=== PATIENT | female | born 1990 | race Caucasian/White ===

== ENCOUNTER 2016-11-29 01:10 | Emergency (ER) | payer OTHER ==
[2016-11-29] MEDS ORDERED: HYDROcodone /APAP 5/325 1 EACH TABLET PO ONE (01:21)
[2016-11-29] MEDS ORDERED: CEPHALEXIN 250 MG CAPSULE PO ONE (01:21)
[2016-11-29 01:24] VITALS: BP 126/75
--- NOTE | 2016-11-29 01:25 | ED Physician Documentation ---
General Adult - HISTORIAN Historian: patient - HPI Stated Complaint: dental pain Chief Complaint: General Adult Onset: days ago (1) Timing: still present Severity: moderate Further Comments: yes (Pt is a 26 yo female with dental pain x 1 day in both upper and lower R jaw. Pt has been taking Tylenol. No fever.) - ROS CONST: no problems EYES/ENT: other (dental pain) CVS/RESP: none GI/: none MS/SKIN/LYMPH: none - PAST HX Past History: other (depression) Allergies/Adverse Reactions: Allergies Allergy/AdvReac Type Severity Reaction Status Date / Time amoxicillin trihydrate Allergy Verified 11/29/16 01:24 [From Amoxil] Penicillins Allergy Verified 11/29/16 01:24 Home Medications: Ambulatory Orders Medication Instructions Recorded Ondansetron HCl Rapdis [Zofran Odt] 4 mg PO Q8 PRN #5 tab 05/05/12 Pnv95/Ferrous Fumarate/FA 1 each PO DAILY 05/05/12 [ Tablet] - SOCIAL HX Smoking History: cigarettes - FAMILY HX Family History: No - VITAL SIGNS Vital Signs: Vital Signs Temp Pulse Resp BP Pulse Ox 120/73 07/10/12 12:12 - REVIEWED ASSESSMENTS Nursing Assessment Reviewed: Yes Vitals Reviewed: Yes Progress - Progress Progress: Rx [place] (5/325) 1-2 po q 4-6 h prn # 15, plus 2 tabs in ER. Rx Keflex 500 mg. Take one every 8 hrs for 10 days. 1st dose in ER. ED Results Lab/Radiology - Orders Orders: ED Orders Category Date Time Status Cephalexin [Keflex] Med 11/29/16 01:21 Once 500 mg PO NOW ONE HYDROcodone /APAP 5/325 [[place] 5/325] Med 11/29/16 01:21 Once 2 each PO NOW ONE General Adult Physical Exam - PHYSICAL EXAM GENERAL APPEARANCE: moderate distress EENT: pharynx normal, other (dental caries, tenderness R upper molar; tenderness R lower molar also) NECK: normal inspection, supple RESPIRATORY: no resp distress CVS: reg rate & rhythm BACK: normal inspection SKIN: warm/dry, normal color EXTREMITIES: non-tender, normal range of motion, no edema NEURO: oriented X3, motor nml, sensation nml Discharge Clincal Impression: Pain, dental Condition: Good Disposition: 01 HOME, SELF-CARE Decision to Admit: NO Decision Time: 01:28
== END 2016-11-29 01:40 | disposition home or self-care (01) ==
LOC: ED 01:10
DX: K08.89 Other specified disorders of teeth and supporting structures (principal)
CPT/HCPCS: 99283

== ENCOUNTER 2017-03-14 01:20 | Emergency (ER) | payer OTHER ==
--- NOTE | 2017-03-14 01:40 | ED Physician Documentation ---
Eye Trauma - HISTORIAN Historian: patient - HPI Stated Complaint: splashed hot wax in rt eye Chief Complaint: Eye Trauma Onset: hours (1) Associated symptoms: pain, redness Location: right eye Severity: mild Apparent Injury: no Context: foreign body (spilled scentsy wax in her eye ) Where: home Other Injuries: other (none ) Further Comments: yes (she states she can see although her eye is watering.) - ROS CONST: no problems - PAST HX Past History: none Allergies/Adverse Reactions: Allergies Allergy/AdvReac Type Severity Reaction Status Date / Time amoxicillin trihydrate Allergy Severe Rash Verified 03/14/17 01:28 [From Amoxil] Penicillins Allergy Severe Rash Verified 03/14/17 01:28 Home Medications: Ambulatory Orders Medication Instructions Recorded NK [NK] 03/14/17 - SOCIAL HX Smoking History: non-smoker Alcohol Use: none Drug Use: none - FAMILY HX Family History: none - VITAL SIGNS Vital Signs: Vital Signs Temp Pulse Resp BP Pulse Ox 108/64 02/15/17 03:29 - REVIEWED ASSESSMENTS Nursing Assessment Reviewed: Yes Vitals Reviewed: Yes Eye Trauma Physical Exam - Physical Exam General Appearance: no acute distress Examined with Slit Lamp: No Visual Acuity: see nursing assessment Eyelids: nml inspection, erythema (R). No: edema (R) Conjunctiva and Sclera: nml inspection. No: foreign material (R) Corneas: nml inspection, fluorescein dye uptake (R). No: foreign body (R) EOM's: intact Pupils: PERRL Head/ENT: nml inspection Skin: nml color, warm, skin intact Neck/Back: nml inspection Respiratory: no resp distress Abdomen: non-tender Neuro/Psych: oriented x3, neuro intact, mood/affect nml Discharge Clincal Impression: Eye injury Qualifiers: Encounter type: initial encounter Laterality: right Qualified Code(s): S05.91XA - Unspecified injury of right eye and orbit, initial encounter Referrals: Primary Doctor,No [Primary Care Provider] - 2 Days Comments: Keep eye covered when needed Cool pack to eye when needed See eye dr in am COLBY return to ER for any concerning symptoms Condition: Stable Disposition: 01 HOME, SELF-CARE Decision to Admit: NO Date of Decison to Admit: 03/14/17 Decision Time: 01:56
[2017-03-14 02:00] VITALS: BP 116/70
[2017-03-14] MEDS: PROPARACAINE HCL 0.5% OPTH OP ONE (02:15)
== END 2017-03-14 01:50 | disposition home or self-care (01) ==
LOC: ED 01:20
DX: S05.91XA Unspecified injury of right eye and orbit, initial encounter (principal); X58.XXXA Exposure to other specified factors, initial encounter
CPT/HCPCS: 99282

== ENCOUNTER 2017-07-25 20:46 | Emergency (ER) | payer OTHER ==
--- NOTE | 2017-07-25 21:33 | ED Physician Documentation ---
Skin Rash - HISTORIAN Historian: patient - HPI Stated Complaint: Rash to Leg Chief Complaint: Skin Rash Onset: days ago (7) Timing: still present Location: RLE (posterior thigh) Identified Cause?: No Where: home Context: Medication Exposure: none Context: Food Exposure: none Further Comments: yes (26 year old female presents with rash to right posterior thigh. C/O itching; has been present for 7 days. No OTC medication used [employer].) - ROS CONST: none CVS/RESP: none EYES/ENT: none GI/: none MS/SKIN/LYMPH: none NEURO/PSYCH: none - PAST HX Past History: none Other History: none Surgeries/Procedures: Yes ( x 2; BLT) Allergies/Adverse Reactions: Allergies Allergy/AdvReac Type Severity Reaction Status Date / Time amoxicillin trihydrate Allergy Severe Rash Verified 07/25/17 20:48 [From Amoxil] Penicillins Allergy Severe Rash Verified 07/25/17 20:48 Home Medications: Ambulatory Orders Medication Instructions Recorded NK [NK] 03/14/17 - SOCIAL HX Smoking History: cigarettes - FAMILY HX Family History: denies: none - VITAL SIGNS Vital Signs: Vital Signs Temp Pulse Resp BP Pulse Ox 98.1 F 72 18 110/58 99 07/25/17 20:50 07/25/17 21:36 07/25/17 21:36 07/25/17 21:36 07/25/17 21:36 - REVIEWED ASSESSMENTS Nursing Assessment Reviewed: Yes Vitals Reviewed: Yes Skin Rash Physical Exam - EXAM General Appearance: no acute distress, alert Skin: warm,dry, erythema Location: extremities (right posterior thigh) Character: maculopapular Extremities: non-tender, nml ROM, no edema EENT: eyes nml inspection, lips nml, gums nml, pharynx nml Respiratory: no resp distress, chest non-tender, breath sounds normal CVS: reg. 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 Over the counter hydrocortisone cream as needed. See your primary doctor or return to the ER if you have increase shortness of breath or difficulty breathing. Condition: Stable Disposition: 01 HOME, SELF-CARE Decision to Admit: NO Decision Time: 21:33
[2017-07-25 21:37] VITALS: BP 110/58
== END 2017-07-25 21:36 | disposition home or self-care (01) ==
LOC: ED 20:46
DX: R21 Rash and other nonspecific skin eruption (principal)

== ENCOUNTER 2017-08-24 13:33 | Outpatient (CLI) | payer OTHER ==
--- NOTE | 2017-09-01 09:03 | OP Clinic Progress Note ---
REASON FOR VISIT: This is a 26-year-old female who is seen in consultation for a forehead lesion removal. She has had a progressively enlarging mass on the left forehead for 6 to 10 years. No trauma. There has been no drainage. It is not painful, just slowly growing. There is about a 1-inch mass that is fairly soft and nontender with no evident pores or drainage. It does not appear to be really skin attached. It is movable. Examination otherwise is unremarkable. PLAN: I went over risks, problems, complications of excision of this and that more than likely it is a lipoma or a dermoid. The possibility again of recurrence, scar, wound breakdown, and other issues were reviewed with the patient. She understands and accepts these issues. Plans are for sedation with local anesthesia and excision and primary repair. FRANSISCO
== END 2017-08-24 13:35 ==
LOC: ENT 13:33
PROVIDERS: ATTEND Otolaryngology
DX: L98.9 Disorder of the skin and subcutaneous tissue, unspecified (principal)
CPT/HCPCS: 99213

== ENCOUNTER 2017-09-21 07:59 | Day surgery (SDC) | payer OTHER ==
[2017-09-21] MEDS ORDERED: NEOSTIGMINE METHYLSULFATE 1 MG/ML VIAL ONE (09:00)
[2017-09-21] MEDS ORDERED: PROPOFOL 200 MG/20 ML VIAL IV ONE (09:00)
[2017-09-21] MEDS ORDERED: fentaNYL CITRATE/PF 100 MCG/ 2ML AMP ONE (09:00)
[2017-09-21] MEDS ORDERED: ROCURONIUM BROMIDE 10 MG/ML 5ML VIAL ONE (09:00)
[2017-09-21] MEDS ORDERED: MIDAZOLAM HCL 2 MG/2 ML VIAL ONE (09:00)
[2017-09-21] MEDS ORDERED: GLYCOPYRROLATE 0.2 MG/1 ML 1 ML ONE (09:00)
[2017-09-21] MEDS ORDERED: DEXAMETHASONE SOD PHOS 4 MG/ML VIAL ONE ×2 (09:00→09:28)
[2017-09-21] MEDS ORDERED: ACETAMINOPHEN 1,000 MG/100 ML INJ IV ONE (09:00)
[2017-09-21] MEDS ORDERED: LACTATED RINGERS 1,000 ML IV.SOLN IV ONE (09:00)
[2017-09-21] MEDS ORDERED: 0.9 % SODIUM CHLORIDE 0 ML IV ONE (09:27)
[2017-09-21] MEDS ORDERED: LIDOCAINE 1%/EPINEPHRINE 20ML VIAL IJ ONE ×2 (09:27→12:31)
--- NOTE | 2017-09-22 10:40 | History and Physical Report ---
CHIEF COMPLAINT/HISTORY AND PHYSICAL: This 26-year-old female is admitted with a lesion on her forehead. It has been there for years and has gotten progressively larger and occasionally it aches. There has been no drainage. There has been no known trauma. PAST MEDICAL HISTORY/REVIEW OF SYSTEMS: ALLERGIES TO MEDICATIONS: 1. Amoxicillin. 2. Penicillin. MEDICATIONS GENERALLY TAKEN: None noted. PHYSICAL EXAMINATION: GENERAL: This is an alert female. HEENT: There is about a 2 cm lesion on the forehead on the left side in the mid-portion of it. The remainder of the head and neck examination is unremarkable. LUNGS: Clear to auscultation and percussion. HEART: Regular rhythm without murmurs, clicks, rubs, heaves, or thrills. ABDOMEN: Mesomorphic and benign. NEUROLOGIC: Grossly intact. EXTREMITIES: Normal range of movement. No edema, clubbing, cyanosis, or deformity. RECTAL/PELVIC: Deferred. IMPRESSION: Mass on forehead, probable lipoma. It is fairly soft. PLAN: Excision of this is the patients choice. I have discussed this several times with her. She understands there will be a scar and it can be unsightly. It can be recurrent. There can be numbness, particularly superior to the incision line, which will be in the skin crease lines. Again, there could be cosmetic displeasure, recurrence, wound breakdown, infection, and multiple other issues. Patient feels and states that she feels that the issues were well explained. For a considerable period of time, she has considered having this removed accepting known problems, complications, scars, and recurrence issues particularly. FRANSISCO
--- NOTE | 2017-09-23 08:43 | Operative Note ---
SURGEON: Jean Ochoa MD ANESTHESIA: General anesthetic. PREOPERATIVE DIAGNOSIS: Left forehead mass. POSTOPERATIVE DIAGNOSIS: 1. Left forehead mass. 2. 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 PROCEDURE PERFORMED: Excision of mass about 2.5 cm on the forehead on the left side. INDICATIONS FOR PROCEDURE: This mass has been growing on the patient for years and it has gotten progressively larger. It has not drained. There is not much other history other than progressive enlargement. I have gone over risks, problems, and complications including recurrence, wound breakdown, infection, need for additional medications or surgery, scar, unsightly appearance, numbness, some motor dysfunction of the forehead, need for postoperative care with pressure dressing, possible necrosis, and multiple other issues were covered several times. Each time the patient stated that she understood the information given as above and other issues and chooses and requests to go ahead with the procedure. Pain and discomfort were also discussed. PROCEDURE IN DETAIL: The patient was taken to the operating room after re-reviewing these issues. She is with her boyfriend. She was given a general anesthetic after discussion with Anesthesia and her choice. The area was prepped with alcohol. Loupe magnification was used. A headlight was used. A scribe was made in the skin crease lines. An incision was made with a 15 Bard-Ronald down to the subcutaneous tissue. Sharp and blunt dissection was carried out around the mass. It appears to be more of a putty-filled cystic change. It is taken down to the base of it. It does not go all the way to the periosteum, it is right on the galea. Dissection was made around it. To get to the base of it, a small amount of decompression was made and brown ooze came out and it is not infected. In removing it in total, there was a secondary piece of material that was not an extension but was a separate mass that looked identical. It too was dissected out. It may have been about 5 mm. I looked around the wound and at the margins of it and did not see additional masses; although if there was a secondary one, it is possible there was a 3rd one, but with a moderate amount of exploration around the edges of it, I did not see this. It was washed and cleaned and used alcohol for this. Edges and margins of the deeper wound were coapted with 4.0 chromic sutures to try to prevent a collection of liquid. The edges came together very nicely. I used maybe 3 sutures of 6.0 rapid absorbing gut. A sterile pressure dressing applied and as discussed with the patient preoperatively the benefits of being left on for about 2 days. She was awakened from her general anesthetic, extubated, and taken to the recovery room in satisfactory condition. Specimen was sent to pathology for permanent section. FRANSISCO
== END 2017-09-21 08:00 ==
LOC: OPSURG 07:59
PROVIDERS: ATTEND Otolaryngology
DX: D23.39 Other benign neoplasm of skin of other parts of face (principal)
CPT/HCPCS: J1100; J2250; J2704; J2710; J3010; J3490; J7120; 11443; 12051; J7030; S1016

== ENCOUNTER 2017-09-24 16:49 | Emergency (ER) | payer OTHER ==
--- NOTE | 2017-09-24 17:16 | ED Physician Documentation ---
General Adult - HISTORIAN Historian: patient - HPI Stated Complaint: facial swelling Chief Complaint: General Adult Onset: days ago (1) Timing: still present Severity: moderate Further Comments: yes (Pt is a 26 yo female who had a cyst removed from her L forehead 0n 09-21-17. Last night pt developed pain and swelling on the R side of her face with a focus of pain at the nasal bridge. Pt has not had fever. She had some nausea on 09-21-17 that she attributed to anesthesia. Pt states "pain is a 13 on a scale of 10.") - ROS CONST: no problems EYES/ENT: other (R facial pain/swelling. "Pain is 13 on a scale of 10." Pt) CVS/RESP: none GI/: none MS/SKIN/LYMPH: other (L facial pain, swelling) - PAST HX Past History: other (C-sec; BTL; cyst removed from forehead.) Allergies/Adverse Reactions: Allergies Allergy/AdvReac Type Severity Reaction Status Date / Time amoxicillin trihydrate Allergy Severe Rash Verified 09/24/17 17:21 [From Amoxil] Penicillins Allergy Severe Rash Verified 09/24/17 17:21 Home Medications: Ambulatory Orders Medication Instructions Recorded NK [NK] 09/24/17 - SOCIAL HX Smoking History: cigarettes - FAMILY HX Family History: Yes - VITAL SIGNS Vital Signs: Vital Signs Temp Pulse Resp BP Pulse Ox 110/58 07/25/17 21:36 - REVIEWED ASSESSMENTS Nursing Assessment Reviewed: Yes Vitals Reviewed: Yes Progress - Progress Progress: CT head: No acute intracranial process. Soft tissue stranding seen along the inferior right orbit without a fluid collection or abscess. This may be a normal postoperative finding. Cellulitis would have a similar appearance. Doxycycline 100 mg po in ER. [place] (5/325) 1 tablets--> home. Rx Doxycycline 100 mg. Take one tablet by mouth every 12 hours for 10 days. Rx [place] (5/325). Take one or two every 4 to 6 hours as needed for moderate to severe pain. General Adult Physical Exam - PHYSICAL EXAM GENERAL APPEARANCE: moderate distress EENT: eye inspection normal, other (? shift of uvula to R) NECK: normal inspection, supple, lymphadenopathy RESPIRATORY: no resp distress, chest non-tender, breath sounds normal CVS: reg rate & rhythm, heart sounds normal BACK: normal inspection SKIN: other (R facial swelling/tenderness; site of epidermoid cyst removal L mid forehead.) EXTREMITIES: non-tender, normal range of motion, no evidence of injury NEURO: oriented X3, motor nml, sensation nml Discharge Clincal Impression: facial swelling, possible cellulitis after cyst removal Referrals: Primary Doctor,No [Primary Care Provider] - Condition: Stable Disposition: 01 HOME, SELF-CARE Decision to Admit: NO Decision Time: 20:20
[2017-09-24] MEDS ORDERED: KETOROLAC TROMETHAMINE 60 MG/2 ML VIAL IM ONE (17:37)
[2017-09-24 18:46] LABS: BASOPHILS % 0.4 (0.0-1.5); EOSINOPHILS % 2.1 % (0.0-6.8); MEAN CORPUSCULAR HEMOGLOBIN 30.1 pg (28.0-34.0); MEAN CORPUSCULAR VOLUME 91.3 fl (80.0-100.0); MONOCYTES % 4.5 % (0.0-11.0)
[2017-09-24 18:56] LABS: eGFR (African) > 60; eGFR (Non-African) > 60
[2017-09-24] MEDS ORDERED: HYDROcodone /APAP 5/325 1 EACH TABLET PO ONE (20:01)
[2017-09-24] MEDS ORDERED: DOXYCYCLINE MONOHYDRATE 100 MG CAPSULE PO ONE (20:01)
[2017-09-24] MEDS ORDERED: CEPHALEXIN 250 MG CAPSULE PO ONE (20:31)
[2017-09-24 20:59] VITALS: BP 110/67
--- NOTE | 2017-09-25 15:52 | Diagnostic Imaging Report ---
VIRA ABRAHAM [facility] [address] [facility] [address] [place], [place]. [address] Report Submission Date: Sep 24, 2017 7:48:16 PM CDT Patient Study Name: LEXY BERNABE Date: Sep 24, 2017 7:09:14 PM CDT Modality Type: CT\SR Gender: F Description: CT BRAIN W W/O CON : 90 Institution: [facility] Physician: VIRA ABRAHAM CT brain with and without contrast Date of study: CLINICAL HISTORY: facial swelling s/p epidermoid cyst removal (Hx) / ITS.REASON facial swelling s/p epidermoid cyst removal (DICOM Hx) TECHNIQUE: 5 mm contiguous axial images of the before and after administration of IV contrast. FINDINGS: There is no evidence of intracranial mass effect, hemorrhage, or acute hydrocephalus. The lateral ventricles are symmetrical and the 4th ventricle is midline without shift. No acute brain parenchymal changes or extra-axial fluid collections are identified. The posterior fossa contents are within normal limits. The calvarium is intact. The visualized sinuses and mastoid air cells are clear. Old left nasal bone fracture is noted. There is no abnormal enhancement in the brain. The orbits and retrorbital fat are unremarkable. Soft tissue thickening seen along the inferior aspect of the right orbit. No well defined fluid collections are identified. Given the recent surgery, this could be normal postoperative finding. No obvious hyperenhancement seen in this area. IMPRESSION: No acute intracranial process. Soft tissue stranding seen along the inferior right orbit without a fluid collection or abscess. This may be a normal postoperative finding. Cellulitis would have a similar appearance. Electronically signed on Sep 24, 2017 7:48:16 PM CDT by: Aleksandra MOODY
== END 2017-09-24 20:45 | disposition home or self-care (01) ==
LOC: ED 16:49
DX: R60.0 Localized edema (principal)
CPT/HCPCS: 70470; 80053; 85025; A9270; J1885; 96372; Q9967; S1016

== ENCOUNTER 2017-10-12 13:16 | Outpatient (CLI) | payer OTHER ==
--- NOTE | 2017-10-13 15:11 | OP Clinic Progress Note ---
REASON FOR VISIT: She is seen in follow up of an excision of a left forehead lesion. This was a epidermal inclusion cyst. There was a secondary small cyst that was also identified at that time and removed also. Overall, the patient has done well. There has been minimal discomfort and the lesion appears to be healing well. In the lateral aspect of the incision site, just over the last 2 days, there has been some degree of serous drainage. It has not been purulent and it has not been sore. PLAN: Under the microscope, I opened and cleaned maybe a 2 mm to 3 mm area. I was able to fish out a small undissolved 4-0 chromic suture. I cleaned it with alcohol and a small Band-Aid was placed. Patient feels overall pleased and happy. I have given her the option of a specific follow up appointment to see us or leave it to her own recognizance. The patient is very bright and alert. She chooses to not make a specific follow up. She feels very comfortable giving us a call if there are any issues going forward. FRANSISCO
== END 2017-10-12 13:18 ==
LOC: ENT 13:16
PROVIDERS: ATTEND Otolaryngology
DX: L98.9 Disorder of the skin and subcutaneous tissue, unspecified (principal); Z48.89 Encounter for other specified surgical aftercare
CPT/HCPCS: 99213

== ENCOUNTER 2017-11-18 10:26 | Emergency (ER) | payer OTHER ==
[2017-11-18 10:54] VITALS: BP 108/60
[2017-11-18] MEDS ORDERED: KETOROLAC TROMETHAMINE 60 MG/2 ML VIAL IM ONE (12:00)
--- NOTE | 2017-11-18 12:15 | ED Physician Documentation ---
General Adult - HISTORIAN Historian: patient - HPI Stated Complaint: Dropped tailgate of truck on Rt foot at 0800 today Chief Complaint: General Adult Onset: hours Timing: still present Severity: moderate Further Comments: yes (Pt is a 27 yo female who injured her R foot this am. The tailgate of trailer fell off the trailer and onto the dorsum of her foot. No laceration.) - ROS CONST: no problems EYES/ENT: none CVS/RESP: none GI/: none MS/SKIN/LYMPH: other (R foot injury) - PAST HX Past History: other (BTL) Allergies/Adverse Reactions: Allergies Allergy/AdvReac Type Severity Reaction Status Date / Time amoxicillin trihydrate Allergy Severe Rash Verified 11/18/17 10:45 [From Amoxil] Penicillins Allergy Severe Rash Verified 11/18/17 10:45 Home Medications: Ambulatory Orders Medication Instructions Recorded NK 09/24/17 - SOCIAL HX Smoking History: cigarettes - FAMILY HX Family History: No - VITAL SIGNS Vital Signs: Vital Signs Temp Pulse Resp BP Pulse Ox 76 16 108/60 11/18/17 10:26 11/18/17 10:26 11/18/17 10:26 - REVIEWED ASSESSMENTS Nursing Assessment Reviewed: Yes Vitals Reviewed: Yes Progress - Progress Progress: X-ray R foot - neg X-ray R ankle - neg Toradol 60 mg IM improved. ED Results Lab/Radiology - Orders Orders: ED Orders Category Date Time Status ANKLE 3 VIEWS OR MORE [RAD] Stat Exams 11/18/17 Ordered FOOT 3 VIEWS OR MORE [RAD] Stat Exams 11/18/17 Ordered Ketorolac Tromethamine [Toradol] Med 11/18/17 12:00 Discontinued 60 mg IM NOW ONE General Adult Physical Exam - PHYSICAL EXAM GENERAL APPEARANCE: moderate distress EENT: pharynx normal NECK: normal inspection, supple RESPIRATORY: no resp distress, chest non-tender, breath sounds normal CVS: reg rate & rhythm, heart sounds normal ABDOMEN: soft, no organomegaly BACK: normal inspection, no CVA tenderness SKIN: warm/dry, normal color EXTREMITIES: normal range of motion, no evidence of injury, tenderness (dorsum R foot, mild ecchymosis, no swelling; ankle FROM) NEURO: oriented X3, motor nml, sensation nml Discharge Clincal Impression: R foot injury/contusion Referrals: Primary Doctor,No [Primary Care Provider] - Condition: Good Disposition: 01 HOME, SELF-CARE Decision to Admit: NO Decision Time: 12:13
--- NOTE | 2017-11-18 18:48 | Diagnostic Imaging Report ---
VIRA ABRAHAM [facility] [address] [facility] [address] [address] Report Submission Date: Nov 18, 2017 11:51:58 AM CDT Patient Study Name: LEXY BERNABE Date: Nov 18, 2017 11:31:17 AM CDT Modality Type: DX Gender: F Description: LOWER EXTREMITY : 90 Institution: [facility] Physician: VIRA ABRAHAM Examination: Plain film right ankle History: RT ANKLE, PAIN IN RT ANKLE AFTER DROPPING A TAILGATE ON TOP OF FOOT TODAY (Hx) Findings: 3 views of the right ankle demonstrates normal cortical margins. No fracture or dislocation. Talar dome is intact. No soft tissue swelling. No joint effusion. Impression: No acute osseous process. Electronically signed on Nov 18, 2017 11:51:58 AM CDT by: Moreno MOODY
--- NOTE | 2017-11-18 18:49 | Diagnostic Imaging Report ---
VIRA ABRAHAM [facility] [address] [facility] [address] [address] Report Submission Date: Nov 18, 2017 11:52:50 AM CDT Patient Study Name: LEXY BERNABE Date: Nov 18, 2017 11:28:39 AM CDT Modality Type: DX Gender: F Description: LOWER EXTREMITY : 90 Institution: [facility] Physician: VIRA ABRAHAM Examination: Plain film right foot History: PAIN IN RT FOOT AFTER DROPPING TAILGATE ON TOP OF FOOT TODAY (Hx) Findings: 3 views of the right foot demonstrates normal cortical margins. No fracture or dislocation. No soft tissue swelling. No joint effusion. Impression: No acute osseous process. Electronically signed on Nov 18, 2017 11:52:50 AM CDT by: Moreno MOODY
== END 2017-11-18 12:15 | disposition home or self-care (01) ==
LOC: ED 10:26
DX: S99.921A Unspecified injury of right foot, initial encounter (principal); S90.31XA Contusion of right foot, initial encounter; W23.1XXA Caught, crushed, jammed, or pinched between stationary objects, initial encounter; Y92.9 Unspecified place or not applicable; Y93.9 Activity, unspecified; Y99.9 Unspecified external cause status
CPT/HCPCS: 73610; 73630; J1885; 96372

== ENCOUNTER 2018-05-16 06:21 | Emergency (ER) | payer SELFPAY ==
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
[2018-05-16] MEDS: DIPH,PERTUSS(ACELL),TET VAC/PF 0.5 ML DISP.SYRIN IM ONE (06:47)
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
[2018-05-16 08:41] VITALS: BP 91/57
== END 2018-05-16 08:17 | disposition home or self-care (01) ==
LOC: ED 06:21
DX: S06.0X0A Concussion without loss of consciousness, initial encounter (principal); S00.412A Abrasion of left ear, initial encounter; Y04.0XXA Assault by unarmed brawl or fight, initial encounter; Y00.XXXA Assault by blunt object, initial encounter; Y93.89 Activity, other specified; Y92.009 Unspecified place in unspecified non-institutional (private) residence as the place of occurrence of the external cause
CPT/HCPCS: 70450; 70486; 90471; 90715; 99284; 99285

== ENCOUNTER 2018-09-17 10:46 | Emergency (ER) | payer BC, OTHER ==
[2018-09-17] MEDS ORDERED: methylPREDNISolone SOD SUCC 125 MG/2 ML VIAL IM ONE (11:05)
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
[2018-09-17 12:37] VITALS: BP 108/62
== END 2018-09-17 11:35 | disposition home or self-care (01) ==
LOC: ED 10:46
DX: R21 Rash and other nonspecific skin eruption (principal)
CPT/HCPCS: 96372; 99284; J2930